=== PATIENT | male | born 1965 | race Caucasian/White ===

== ENCOUNTER 2019-01-30 18:46 | Observation (INO) ==
[2019-01-31] MEDS ORDERED: Naloxone 0.4 MG/ML INJ IVP PRN (02:01)
[2019-01-31] MEDS ORDERED: 0.9 % Sodium Chloride 1,000 ML IVC SCH (02:15)
[2019-01-31] MEDS ORDERED: D5% in Water 1,000 ML IVC PRN (02:19)
[2019-01-31] MEDS ORDERED: Dextrose Gel 15 GM/37.5 ML TUBE PO PRN ×2 (02:19)
[2019-01-31] MEDS ORDERED: *HR* Dextrose 50 % in Water (Syg) 50 ML SYRINGE IVP PRN (02:19)
--- NOTE | 2019-01-31 02:35 | Internal Med History&Physical ---
Date of Encounter: 01/31/19 Time of Encounter: 02:18 Internal Medicine - H&P: HPI Chief complaint: Fever History of present illness: Mr. Ahumada is a 53 year old male with a past medical history of cerebral palsy, asthma, diabetes, hepatitis, hypertension, seizures and thyroid disorder who initially presented to urgent care earlier yesterday afternoon from [facility] due to a reported fever of 104, cough, runny nose reported by his caregiver. Patient was found to be satting at 90-91% on room air. He was tachycardic in the 130s with a blood pressure of 94/62. Flu a was positive. Patient was transferred to [place] for further evaluation. Of note, Patient was recently admitted to [facility] and treated for bilateral pneumonia. At [place] patient received 3 L of fluids and was started on levofloxacin and Tamiflu. Blood cultures were also obtained. Labs obtained at [place] were notable for a leukocyte count of 17.2 and initial lactic acid of 3.9. Repeat lactate 2 hours later was 2.9. Chest x-ray obtained at [place] showed stable retrocardiac left lower lobe airspace disease. On my assessment patient was lying in bed in no acute respiratory distress. Patient is a poor historian given his cerebral palsy and is unable to provide any history but is able to follow commands. Lungs were rhonchorous bilaterally. We treat for influenza and possible HCAP. Past Med Surg Social Fam HX - Past Medical History Medical history: asthma, diabetes, hepatitis, osteoporosis Additional medical history: dysphagia. TBI Psychiatric history: other - Past Surgical History Surgical History: tracheostomy Additional surgical history: SURGERIES ARE UNKNOWN. TRACHE - Social History Smoking Status: Never smoker Smokeless Tobacco Status: No Alcohol use: none Drug use: none Internal Medicine - H&P: Meds Albuterol Sulfate 2.5 mg IH TID 05/28/15 [History] Alendronate Sodium 70 mg PO QWEEK PRN 05/28/15 [History] Calcium Carbonate [Calcium] 500 mg PO BID #0 05/28/15 [History] Docusate Sodium [Dulcoease] 100 mg PO DAILY 05/28/15 [History] Gabapentin [Neurontin] 300 mg PO TID 05/28/15 [History] Levothyroxine Sodium [Tirosint] 50 mcg PO DAILY 05/28/15 [History] Multivitamin [Multi-Delyn] 5 ml PO DAILY 05/28/15 [History] Oxybutynin Chloride [Oxybutynin Chloride ER] 5 mg PO DAILY 05/28/15 [History] Phenytoin Sodium Extended [Dilantin] 100 mg PO QID 05/28/15 [History] dimenhyDRINATE [Dimenhydrinate] 50 mg IJ DAILY PRN 05/28/15 [History] Albuterol Sulfate [Ventolin Hfa] 90 mcg PO Q4H PRN 12/07/15 [History] Magnesium Hydroxide [Milk of Magnesia] 30 ml PO QID 12/07/15 [History] Polyethylene Glycol 3350 [MiraLAX] 17 gm PO DAILY 12/07/15 [History] Quetiapine Fumarate [Seroquel] 200 mg PO HS 12/07/15 [History] metFORMIN [Glucophage] 500 mg PO BID 12/07/15 [History] Alendronate Sodium [Fosamax] 70 mg PO QWEEK 01/09/19 [History] Lovastatin 10 mg PO DAILY 01/09/19 [History] Ascorbic Acid [C-500] 500 mg PO DAILY #30 tablet 01/11/19 [Rx] Ferrous Sulfate 325 mg PO DAILY #30 tablet 01/11/19 [Rx] Lactobacillus [Culturelle] 1 each PO BID #10 cap.sprink 01/11/19 [Rx] Allergy/AdvReac Type Severity Reaction Status Date / Time No Known Allergies Allergy Verified 01/30/19 11:04 All Systems PM: A 10-system review of systems was performed and is negative for pertinent findings except as documented above in the HPI. - Constitutional Constitutional: no chills, no fever(s), no night sweats - EENT Eyes: no change in vision, no discharge, no pain, no photophobia Ears: no ear discharge, no ear pain, no tinnitus Nose, mouth and throat: no dysphagia, no nasal discharge, no neck pain, no sore throat - Cardiovascular Cardiovascular ROS IM: no chest pain, no diaphoresis, no dyspnea, no lightheadedness, no palpitations, no syncope - Respiratory Respiratory: no cough, no dyspnea, no wheezing, no excessive phlegm production - Gastrointestinal Gastrointestinal: no abdominal pain, no diarrhea, no hematemesis, no hematochezia, no melena, no nausea, no vomiting - Musculoskeletal Musculoskeletal ROS IM: no numbness, no tingling - Integumentary Integumentary IM: no rash, no unusual bruising - Neurological Neurological ROS: no confusion, no convulsions, no focal weakness, no numbness, no tingling, no tremor(s) - Hematologic/Lymphatic Hematologic/Lymphatic: no easy bruising - Constitutional Vitals: Temp Pulse Resp BP Pulse Ox 98.0 F 116 18 120/72 97 01/30/19 21:52 01/30/19 21:52 01/30/19 21:52 01/30/19 21:52 01/30/19 21:52 Exam: General: Alert and oriented Skin:Normal color, no rash, no lesions. HEENT:EOM, pupils equal, round and reactive. Cardiovascular:Normal S1 & S2, no rubs, murmurs or gallops. No JVD. Pulse regular. Lungs: Lung sounds rhonchorous bilaterally Abdomen:Soft, non-tender, no rigidity. Extremities:No deformity, no edema or tenderness, no joint swelling or clubbing. Neurological:Normal cognition and motor skills. Pulses:Carotid and radial pulses normal +2. Rest of the physical exam is non contributory Internal Med - H&P Results - Labs CBC & Chem 7: 02/01/19 05:21 01/31/19 04:46 - Assessment and Plan (1) Influenza A Current Visit: No Status: Acute Assessment and plan: Patient reportedly presented with fever 104, runny nose and cough within the last 24 hours. Tested positive for influenza A at urgent care. Received one- time dose of Tamiflu at [place]. -Continue Tamiflu (2) Severe sepsis Current Visit: Yes Status: Acute Assessment and plan: Patient presents with reported fever of 104. Found to be tachycardic with a significant leukocytosis of 17.2 and elevated lactic acid of 3.9. Patient received 3 L of fluids at [facility] prior to transfer. Repeat lactic acid 2.9 patient remains slightly tachycardic in the 1 teens. Her cultures pending -Continue fluid support -Continue with treatment for influenza A with Tamiflu and broad-spectrum antibiotics -Follow-up blood cultures; Legionella/strep urine antigen (3) Left lower lobe pneumonia Current Visit: No Status: Acute Assessment and plan: Patient presenting with fever and cough. Recently admitted for bilateral airspace disease. Lung sounds rhonchorous bilaterally. Repeat chest x-ray shows stable left lower lobe infiltrate; leukocyte count of 17.2. Concern for healthcare associated pneumonia. -[place] and Harleen -Follow-up blood cultures; Legionella/strep urine antigen Qualifiers: Pneumonia type: due to unspecified organism Qualified Code(s): J18.1 - Lobar pneumonia, unspecified organism (4) DM type 2 (diabetes mellitus, type 2) Current Visit: No Status: Chronic Assessment and plan: Diabetic diet. Sliding scale insulin. Blood glucose checks. Qualifiers: Diabetes mellitus intermediate project manager insulin use: without intermediate project manager use Diabetes mellitus complication status: without complication Qualified Code(s): E11.9 - Type 2 diabetes mellitus without complications (5) Hypothyroidism Current Visit: No Status: Chronic Assessment and plan: Resume levothyroxine Qualifiers: Hypothyroidism type: unspecified Qualified Code(s): E03.9 - Hypothyroidism, unspecified (6) Seizure Current Visit: No Status: Chronic (7) DVT prophylaxis Current Visit: Yes Status: Acute Assessment and plan: Subcutaneous heparin - Time Spent With Patient Total time spent is greater than 50% in coordination of care (as documented) at patient's floor/unit and/or counseling patient:
[2019-01-31] MEDS: Insulin LISPRO 300 UNITS/3 ML VIAL SQ SCH ×4 (03:47→16:33)
[2019-01-31] MEDS: 0.9 % Sodium Chloride 1,000 ML IVC SCH ×3 (03:56→22:35)
[2019-01-31 05:05] LABS: Basophils % 0.2 %; Eosinophils % 0.1 %; Hemoglobin 11.7 g/dL (12.9-16.9); Immature Granulocytes % 0.2 % (0-4); Lymphocytes # 0.9 K/mcL (0.6-4.6); Lymphocytes % 9.8 %; Mean Corpuscular HGB Conc 31.6 g/dL (31.6-35.5); Mean Corpuscular Hemoglobin 27.1 pg (28.0-33.3); Mean Corpuscular Volume 85.8 fL (83.0-100.0); Mean Platelet Volume 9.3 fL (9.4-12.4); Monocytes # 1.4 K/mcL (0.0-1.3); Monocytes % 16.2 %; Neutrophils # 6.3 K/mcL (1.6-8.9); Platelet Count 224 K/mcL (140-400); Red Blood Count 4.31 M/mcL (4.19-5.50); Red Cell Distribution Width 15.9 % (11.5-14.5); Segmented Neutrophils % 73.5 %
[2019-01-31] MEDS: *HR* Heparin 5,000 UNIT/ML VIAL SQ SCH ×3 (05:23→20:24)
[2019-01-31 05:25] LABS: Alanine Aminotransferase 44 Units/L (7-52); Albumin 3.3 g/dL (3.5-5.7); Alkaline Phosphatase 66 Units/L (34-104); Aspartate Amino Transferase 48 Units/L (13-39); BUN/Creatinine Ratio 34 (6-26); Bilirubin,Total 0.3 mg/dL (0.3-1.0); Blood Urea Nitrogen 17 mg/dL (6-20); Calcium 8.6 mg/dL (8.6-10.3); Carbon Dioxide 23 mEq/L (23-29); Chloride 107 mEq/L (98-107); Globulin 3.4 g/dL (2.4-3.5); Glucose 130 mg/dL (70-105); Osmolality,Calculated 287 (280-300); Potassium 3.7 mEq/L (3.5-5.1); Sodium 137 mEq/L (136-145); Total Protein 6.7 g/dL (6.4-8.9); eGFR For Non-African Americans > 60 (> 60)
[2019-01-31] MEDS: Piperacillin/Tazobactam 3.375 GM in 0.9 % Sodium Chloride Mini Bag 100 ML IVPB SCH ×2 (07:45→16:32)
--- NOTE | 2019-01-31 22:03 | Internal Med Progress Note ---
Hospitalist Progress Note - Encounter Date of Encounter: 01/31/19 Time of Encounter: 19:00 - Subjective Interval History: SUBJECTIVE: The patient is not showing any signs of distress. He knows his first name and last name. He knows, that he is in the hospital. Denies chest pain. Denies difficulty breathing. He is on room air oxygen. I could not hear him coughing or wheezing. OBJECTIVE: Skin: Free of rash and discoloration. ENMT: Oral/pharyngeal mucosa is normal in appearance. Eyes: Sclera is white. There is no discharge from eyes. Respiratory: Normal breath sounds; no crackles or wheezes. CV: Heart is regular; no gallop or murmur. GI: Abdomen is soft and not tender. There is no palpable mass or visceromegaly. Neuro: He has a different degree of spasticity in all his 4 extremities. He has some involuntary movements. ADDITIONAL DATA: Chest x-ray from yesterday showed retrocardiac left lower lobe air space disease, possibly related to atelectasis. Hemoglobin is 11.7 with WBC of 8.6 thousand and platelet count of 224,000. Electrolytes are normal. Creatinine 0.50. Random glucose is 130. Lactic acid is 1.1; was increased before. Liver function tests are normal. ASSESSMENT AND PLAN: Influenza a. Tested positive in an urgent care. With possible sepsis. I doubt, he has pneumonia. I will repeat his chest x-ray and CBC tomorrow morning. He started on Tamiflu. He is on IV vancomycin and IV Zosyn. Blood cultures are pending. Cerebral palsy/seizure disorder. To continue gabapentin. Type 2 diabetes mellitus. He was on metformin before this admission. Currently, I will keep him on when necessary Humalog. - Exam Vitals: Temp Pulse Resp BP Pulse Ox 98.9 F 88 25 124/77 94 01/31/19 19:28 01/31/19 19:28 01/31/19 19:28 01/31/19 19:28 01/31/19 19:28 Exam: xx - Assessment and Plan (1) DM type 2 (diabetes mellitus, type 2) Current Visit: No Status: Chronic (2) Seizure Current Visit: No Status: Chronic (3) Hypothyroidism Current Visit: No Status: Chronic (4) Left lower lobe pneumonia Current Visit: No Status: Acute (5) Influenza A Current Visit: No Status: Acute (6) Severe sepsis Current Visit: Yes Status: Acute (7) DVT prophylaxis Current Visit: Yes Status: Acute - Time Spent with Patient Total time spent is greater than 50% in coordination of care (as documented) at patient's floor/unit and/or counseling patient: Internal Medicine: Result - Labs CBC & Chem 7: 01/31/19 04:46 01/31/19 04:46 Labs: Short CBC 01/31/19 Range/Units 04:46 WBC 8.6 (4.3-11.1) K/mcL Hgb 11.7 L D (12.9-16.9) g/dL Hct 37.0 L (37.5-50.1) % Plt Count 224 (140-400) K/mcL Neutrophils # 6.3 (1.6-8.9) K/mcL BMP 01/31/19 04:46 Sodium 137 Potassium 3.7 Chloride 107 Carbon Dioxide 23 BUN 17 Creatinine 0.50 L Glucose 130 H Calcium 8.6 Liver Function 01/31/19 Range/Units 04:46 Total Bilirubin 0.3 (0.3-1.0) mg/dL AST 48 H (13-39) Units/L ALT 44 (7-52) Units/L Alkaline Phosphatase 66 (34-104) Units/L Albumin 3.3 L (3.5-5.7) g/dL Consult Discharge Plan - Plan Referrals: Jaqui Traylor MD [Primary Care Provider] - 02/05/19 11:00 am (1) DM type 2 (diabetes mellitus, type 2) Qualifiers: Diabetes mellitus superintendent marine oil terminal insulin use: without superintendent marine oil terminal use Diabetes mellitus complication status: without complication Qualified Code(s): E11.9 - Type 2 diabetes mellitus without complications (3) Hypothyroidism Qualifiers: Hypothyroidism type: unspecified Qualified Code(s): E03.9 - Hypothyroidism, unspecified (4) Left lower lobe pneumonia Qualifiers: Pneumonia type: due to unspecified organism Qualified Code(s): J18.1 - Lobar pneumonia, unspecified organism
[2019-01-31] MEDS ORDERED: GuaiFENesin Liq 200 MG/10 ML UDC PO SCH (22:45)
[2019-02-01] MEDS ORDERED: GuaiFENesin Liq 200 MG/10 ML UDC PO SCH
[2019-02-01] MEDS: Piperacillin/Tazobactam 3.375 GM in 0.9 % Sodium Chloride Mini Bag 100 ML IVPB SCH ×3 (00:47→18:20)
[2019-02-01] MEDS: GuaiFENesin Liq 200 MG/10 ML UDC PO SCH ×4 (00:47→18:21)
[2019-02-01] MEDS: *HR* Heparin 5,000 UNIT/ML VIAL SQ SCH ×3 (05:16→21:10)
[2019-02-01 06:24] LABS: Basophils % 0.2 %; Eosinophils % 0.3 %; Immature Granulocytes % 0.2 % (0-4); Lymphocytes # 1.3 K/mcL (0.6-4.6); Mean Corpuscular HGB Conc 32.4 g/dL (31.6-35.5); Mean Corpuscular Hemoglobin 27.3 pg (28.0-33.3); Mean Corpuscular Volume 84.4 fL (83.0-100.0); Mean Platelet Volume 9.9 fL (9.4-12.4); Monocytes # 1.2 K/mcL (0.0-1.3); Monocytes % 13.4 %; Neutrophils # 6.4 K/mcL (1.6-8.9); Platelet Count 239 K/mcL (140-400); Red Blood Count 4.03 M/mcL (4.19-5.50); Red Cell Distribution Width 15.3 % (11.5-14.5); Segmented Neutrophils % 71.9 %
[2019-02-01] MEDS: Gabapentin 300 MG CAPSULE PO SCH ×3 (10:14→21:10)
[2019-02-01] MEDS: Insulin LISPRO 300 UNITS/3 ML VIAL SQ SCH ×3 (10:17→18:27)
[2019-02-01] MEDS: 0.9 % Sodium Chloride 1,000 ML IVC SCH ×2 (14:49→18:31)
--- NOTE | 2019-02-01 22:13 | Internal Med Progress Note ---
Hospitalist Progress Note - Encounter Date of Encounter: 02/01/19 Time of Encounter: 19:00 - Subjective Interval History: SUBJECTIVE: The patient feels better. I found him in his bed not showing any distress. I did not observe any involuntary movements during the visit. Denies chest pain. He does have mild cough but not wheezing. He seems to have good appetite. He has normal bowel movements and urination. OBJECTIVE: Skin: Free of rash and discoloration. ENMT: Oral/pharyngeal mucosa is normal in appearance. Eyes: Sclera is white. There is no discharge from eyes. Respiratory: Normal breath sounds; no crackles or wheezes. CV: Heart is regular; no gallop or murmur. GI: Abdomen is soft and not tender. There is no palpable mass or visceromegaly. Neuro: There is no focal deficits. ADDITIONAL DATA: Chest x-ray from today does not show any significant findings. CBC shows hemoglobin of 11.0 with normal WBC/platelet count. ASSESSMENT AND PLAN: Influenza A. His pneumonia is basically ruled out. He does not have any sepsis today. I will continue Tamiflu. I will discontinue IV vancomycin/IV Zosyn. Seizure disorder. He has underlying cerebral palsy. To continue gabapentin. Type 2 diabetes mellitus. Fingerstick for glucose from today is 136 and 243. To continue when necessary Humalog. Hypothyroidism. Clinically under control. To continue Synthroid. DISPOSITION: I anticipate his discharge in 1-2 days. - Exam Vitals: Temp Pulse Resp BP Pulse Ox 98.3 F 88 19 133/86 91 02/01/19 19:52 02/01/19 19:52 02/01/19 19:52 02/01/19 19:52 02/01/19 19:52 Exam: xx - Assessment and Plan (1) Influenza A Current Visit: Yes Status: Acute (2) Left lower lobe pneumonia Current Visit: Yes Status: Ruled-out (3) Severe sepsis Current Visit: Yes Status: Acute (4) Seizure Current Visit: Yes Status: Chronic (5) DM type 2 (diabetes mellitus, type 2) Current Visit: No Status: Chronic (6) Hypothyroidism Current Visit: No Status: Chronic - Time Spent with Patient Total time spent is greater than 50% in coordination of care (as documented) at patient's floor/unit and/or counseling patient: Internal Medicine: Result - Labs CBC & Chem 7: 02/01/19 05:21 01/31/19 04:46 Labs: Short CBC 02/01/19 Range/Units 05:21 WBC 8.9 (4.3-11.1) K/mcL Hgb 11.0 L (12.9-16.9) g/dL Hct 34.0 L (37.5-50.1) % Plt Count 239 (140-400) K/mcL Neutrophils # 6.4 (1.6-8.9) K/mcL - Impressions Impressions Chest X-Ray 02/01/19 07:00 IMPRESSION: Normal chest x-ray D/ / Suraj Forbes MD / Suraj Forbes MD Interpreting Provider: Suraj Forbes MD Consult Discharge Plan - Plan Referrals: Jaqui Traylor MD [Primary Care Provider] - 02/05/19 11:00 am (2) Left lower lobe pneumonia Qualifiers: Pneumonia type: due to unspecified organism Qualified Code(s): J18.1 - Lobar pneumonia, unspecified organism (5) DM type 2 (diabetes mellitus, type 2) Qualifiers: Diabetes mellitus alf insulin use: without exterminator termite use Diabetes m ellitus complication status: without complication Qualified Code(s): E11.9 - Type 2 diabetes mellitus without complications (6) Hypothyroidism Qualifiers: Hypothyroidism type: unspecified Qualified Code(s): E03.9 - Hypothyroidism, unspecified
[2019-02-02] MEDS: GuaiFENesin Liq 200 MG/10 ML UDC PO SCH ×4 (00:12→18:31)
[2019-02-02] MEDS: Piperacillin/Tazobactam 3.375 GM in 0.9 % Sodium Chloride Mini Bag 100 ML IVPB SCH (00:12)
[2019-02-02] MEDS: *HR* Heparin 5,000 UNIT/ML VIAL SQ SCH ×3 (06:41→21:44)
[2019-02-02] MEDS: 0.9 % Sodium Chloride 1,000 ML IVC SCH (06:41)
[2019-02-02 07:01] LABS: Hematocrit 33.3 % (37.5-50.1); Hemoglobin 10.9 g/dL (12.9-16.9); Mean Corpuscular HGB Conc 32.7 g/dL (31.6-35.5); Mean Corpuscular Hemoglobin 27.2 pg (28.0-33.3); Mean Platelet Volume 9.2 fL (9.4-12.4); Platelet Count 235 K/mcL (140-400); Red Blood Count 4.01 M/mcL (4.19-5.50); Red Cell Distribution Width 15.4 % (11.5-14.5)
[2019-02-02 07:20] LABS: BUN/Creatinine Ratio 8 (6-26); Blood Urea Nitrogen 4 mg/dL (6-20); Calcium 8.3 mg/dL (8.6-10.3); Carbon Dioxide 27 mEq/L (23-29); Chloride 107 mEq/L (98-107); Glucose 156 mg/dL (70-105); Osmolality,Calculated 290 (280-300); Potassium 3.2 mEq/L (3.5-5.1); Sodium 140 mEq/L (136-145); eGFR For Non-African Americans > 60 (> 60)
[2019-02-02] MEDS: Gabapentin 300 MG CAPSULE PO SCH ×3 (10:01→21:44)
[2019-02-02] MEDS: Insulin LISPRO 300 UNITS/3 ML VIAL SQ SCH ×3 (10:01→18:30)
--- NOTE | 2019-02-02 20:54 | Internal Med Progress Note ---
Hospitalist Progress Note - Encounter Date of Encounter: 02/02/19 Time of Encounter: 19:00 - Subjective Interval History: SUBJECTIVE: The patient feels good. He is not voicing any particular problems. He does have mild cough but not wheezing. Denies chest pain and difficulty breathing. Denies abdominal pain, nausea and vomiting. He has normal urination. I found him sitting next to his bed. He was not showing any signs of distress. OBJECTIVE: Skin: Free of rash and discoloration. ENMT: Oral/pharyngeal mucosa is normal in appearance. Eyes: Sclera is white. There is no discharge from eyes. Respiratory: Normal breath sounds; no crackles or wheezes. CV: Heart is regular; no gallop or murmur. GI: Abdomen is soft and not tender. There is no palpable mass or visceromegaly. Neuro: There is no focal deficits. He does have some spasticity in his extremities. I have not seen any involuntary movements today. ADDITIONAL DATA: Chest x-ray from 02/01 did not show any significant findings. CBC from yesterday showed hemoglobin of 11.0 with normal WBC/platelet count. ASSESSMENT AND PLAN: Influenza A. His pneumonia is basically ruled out. His sepsis was present on day 1; disappeared later. To continue Tamiflu. For total of 5 days. Seizure disorder. He has underlying cerebral palsy. To continue gabapentin. Type 2 diabetes mellitus. Fingerstick for glucose from today is 186, 189 and 137. To continue when necessary Humalog. Hypothyroidism. Clinically under control. To continue Synthroid. DISPOSITION: I talked to the patients caregiver from his [facility] living today. They will come tomorrow at lunchtime to get him discharged. - Exam Vitals: Temp Pulse Resp BP Pulse Ox 98.7 F 73 18 143/88 95 02/02/19 18:59 02/02/19 18:59 02/02/19 18:59 02/02/19 18:59 02/02/19 18:59 Exam: xx - Assessment and Plan (1) Influenza A Current Visit: Yes Status: Acute (2) Left lower lobe pneumonia Current Visit: Yes Status: Ruled-out (3) Severe sepsis Current Visit: Yes Status: Resolved (4) Seizure Current Visit: Yes Status: Chronic (5) DM type 2 (diabetes mellitus, type 2) Current Visit: No Status: Chronic (6) Hypothyroidism Current Visit: No Status: Chronic - Time Spent with Patient Total time spent is greater than 50% in coordination of care (as documented) at patient's floor/unit and/or counseling patient: 25 - 35 minutes Plan of Care Discussed with: patient Internal Medicine: Result - Labs CBC & Chem 7: 02/02/19 06:35 02/02/19 06:35 Labs: Short CBC 02/02/19 Range/Units 06:35 WBC 6.3 (4.3-11.1) K/mcL Hgb 10.9 L (12.9-16.9) g/dL Hct 33.3 L (37.5-50.1) % Plt Count 235 (140-400) K/mcL BMP 02/02/19 06:35 Sodium 140 Potassium 3.2 L Chloride 107 Carbon Dioxide 27 BUN 4 L Creatinine 0.50 L Glucose 156 H Calcium 8.3 L Consult Discharge Plan - Plan Referrals: Jaqui Traylor MD [Primary Care Provider] - 02/05/19 11:00 am (2) Left lower lobe pneumonia Qualifiers: Pneumonia type: due to unspecified organism Qualified Code(s): J18.1 - Lobar pneumonia, unspecified organism (5) DM type 2 (diabetes mellitus, type 2) Qualifiers: Diabetes mellitus salvage determiner insulin use: without salvage determiner use Diabetes mellitus complication status: without complication Qualified Code(s): E11.9 - Type 2 diabetes mellitus without complications (6) Hypothyroidism Qualifiers: Hypothyroidism type: unspecified Qualified Code(s): E03.9 - Hypothyroidism, unspecified
[2019-02-02] MEDS ORDERED: Aminoglycoside Consult 1 EACH MC ONE (20:55)
[2019-02-03] MEDS: GuaiFENesin Liq 200 MG/10 ML UDC PO SCH ×2 (01:13→05:19)
[2019-02-03] MEDS: *HR* Heparin 5,000 UNIT/ML VIAL SQ SCH (05:19)
[2019-02-03 05:50] LABS: Hematocrit 33.7 % (37.5-50.1); Mean Corpuscular HGB Conc 32.6 g/dL (31.6-35.5); Mean Corpuscular Hemoglobin 26.7 pg (28.0-33.3); Mean Corpuscular Volume 81.8 fL (83.0-100.0); Mean Platelet Volume 9.3 fL (9.4-12.4); Platelet Count 234 K/mcL (140-400); Red Blood Count 4.12 M/mcL (4.19-5.50); Red Cell Distribution Width 15.4 % (11.5-14.5)
[2019-02-03 06:08] LABS: BUN/Creatinine Ratio 10 (6-26); Blood Urea Nitrogen 5 mg/dL (6-20); Calcium 8.9 mg/dL (8.6-10.3); Carbon Dioxide 30 mEq/L (23-29); Chloride 105 mEq/L (98-107); Glucose 161 mg/dL (70-105); Osmolality,Calculated 293 (280-300); Potassium 3.3 mEq/L (3.5-5.1); Sodium 141 mEq/L (136-145); eGFR For Non-African Americans > 60 (> 60)
[2019-02-03 07:20] VITALS: BP 130/75
[2019-02-03] MEDS: Gabapentin 300 MG CAPSULE PO SCH (09:45)
--- NOTE | 2019-02-03 09:45 | Discharge Summary ---
Orders not resulted at time of discharge: Pending orders 01/31/19 02:24 Legionella Antigen [RM] Stat S. Pneumoniae Antigen [RM] Stat 02/04/19 04:00 BMP [Basic Metabolic Panel] 4XPD Complete Blood Count w/o Diff [HEME] 4XPD Date of Encounter: 02/03/19 Time of Encounter: 09:32 - Discharge Diagnosis (1) Influenza A Priority: Primary Status: Acute (2) Left lower lobe pneumonia Priority: Primary Status: Ruled-out Qualifiers: Pneumonia type: due to unspecified organism Qualified Code(s): J18.1 - Lobar pneumonia, unspecified organism (3) Severe sepsis Priority: Primary Status: Resolved (4) Seizure Priority: Secondary Status: Chronic (5) DM type 2 (diabetes mellitus, type 2) Priority: Secondary Status: Chronic Qualifiers: Diabetes mellitus ad terminal makeup operator insulin use: without ad terminal makeup operator use Diabetes mellitus complication status: without complication Qualified Code(s): E11.9 - Type 2 diabetes mellitus without complications (6) Hypothyroidism Priority: Secondary Status: Chronic Qualifiers: Hypothyroidism type: unspecified Qualified Code(s): E03.9 - Hypothyroidism, unspecified Hospital course: HOSPITAL COURSE: The patient is a 53-year-old male with high fever/suspected sepsis. We found him positive for influenza A testing. Initial diagnosis of pneumonia was ruled out shortly after the admission. He was treated with Tamiflu. He received IV fluids. He was on IV antibiotics for the first 24 hours. She believes at a custodial. He has underlying cerebral palsy/seizure disorder. I sent him there in good condition. CONDITION AT DISCHARGE: He feels good. He has no problems with diet. He does transfers with assistance. Denies chest pain and difficulty breathing. His fever was only in the first 24 hours at this admission. Skin: Free of rash and discoloration. Respiratory: Normal breath sounds with no crackles and wheezes bilaterally. CV: Heart is regular with no gallop or murmur. GI: Abdomen is flat and soft with no palpable mass or visceromegaly. Neuro exam: There is no focal deficits. Normal speech, swallowing and gait. SEE DISCHARGE ORDERS/MEDICATIONS He will complete treatment with Tamiflu. Discharge discussed with: patient (and family...) - Time Spent with Patient Total time spent providing and/or coordinating discharge services: Time spent: Greater than 30 minutes (35 minutes...) - Discharge Medications Prescriptions: New Oseltamivir [Tamiflu] 75 mg PO BID 3 Days #6 capsule Continue Magnesium Hydroxide [Milk of Magnesia] 30 ml PO PRN PRN PRN Reason: NO BOWEL MOVEMENT FOR 3 DAYS Quetiapine Fumarate [Seroquel] 100 mg PO QAM Polyethylene Glycol 3350 [MiraLAX] 17 gm PO DAILY Albuterol Sulfate [Ventolin Hfa] 2 puff IH Q4-6H PRN PRN Reason: COUGH/CONGESTION/ SOB Acetaminophen [Tylenol] 650 mg PO Q4H PRN PRN Reason: TEMP GREATER THAN 101/ HEADACH Albuterol Neb [Proventil Neb] 2.5 mg IH Q4H PRN PRN Reason: COUGH/WHEEZING/DYSPNEA Benzonatate [Tessalon] 100 mg PO TID PRN PRN Reason: Cough Calcium Carbonate/Vitamin D3 [Oyster Shell Calcium-Vit D Tab] 1 tab PO BID Carbamide Peroxide [Ear Wax Drops] 3 drop BOTH EARS HS Desitin (Zinc Oxide) [Desitin] 1 appl TP BID PRN PRN Reason: REDNESS/IRRITATION dimenhyDRINATE [Dramamine] 50 mg PO PRN PRN PRN Reason: Motion Sickness Docusate Sodium [Doc-Q-Lace] 200 mg PO QPM Emollient Combination No.108 [Lubriskin] 1 appl TP AD PRN PRN Reason: MOISTURIZE SKIN Gabapentin [Neurontin] 300 mg PO TID Guaifenesin [Mucinex] 600 mg PO Q12H PRN PRN Reason: Cough Ibuprofen [Ibu] 800 mg PO TID PRN PRN Reason: SWELLING OF LEFT FOOT Metformin HCl [Glucophage] 1,000 mg PO BID Multivit,Th Iron,Other Min [Therems-M] 1 tab PO DAILY Non-Formulary Medication 30 ml PO Q4H PRN PRN Reason: UPSET STOMACH/ HEARTBURN Oxybutynin Chloride [Ditropan Xl] 5 mg PO DAILY Phenytoin ER [Dilantin ER] 100 mg PO QID Quetiapine Fumarate [Seroquel] 200 mg PO QPM Saline Nasal [place] [[place]ber Nas[place]] 3 spray NS TID PRN PRN Reason: NASAL SCABS Multivitamin [Multi-Delyn] 5 ml PO DAILY Levothyroxine Sodium [Tirosint] 50 mcg PO DAILY Alendronate Sodium [Fosamax] 70 mg PO QWEEK Lovastatin 10 mg PO DAILY Ascorbic Acid [C-500] 500 mg PO DAILY #30 tablet Ferrous Sulfate 325 mg PO DAILY #30 tablet Lactobacillus [Culturelle] 1 each PO BID #10 cap.sprink Discontinued Calcium Carbonate [Calcium] 500 mg PO BID #0 No Action levoFLOXacin [Levaquin] 500 mg PO DAILY #10 tablet Home Medications: Levothyroxine Sodium [Tirosint] 50 mcg PO DAILY 05/28/15 [History] Multivitamin [Multi-Delyn] 5 ml PO DAILY 05/28/15 [History] Albuterol Sulfate [Ventolin Hfa] 2 puff IH Q4-6H PRN 12/07/15 [History] Magnesium Hydroxide [Milk of Magnesia] 30 ml PO PRN PRN 12/07/15 [History] Polyethylene Glycol 3350 [MiraLAX] 17 gm PO DAILY 12/07/15 [History] Quetiapine Fumarate [Seroquel] 100 mg PO QAM 12/07/15 [History] Alendronate Sodium [Fosamax] 70 mg PO QWEEK 01/09/19 [History] Lovastatin 10 mg PO DAILY 01/09/19 [History] Ascorbic Acid [C-500] 500 mg PO DAILY #30 tablet 01/11/19 [Rx] Ferrous Sulfate 325 mg PO DAILY #30 tablet 01/11/19 [Rx] Lactobacillus [Culturelle] 1 each PO BID #10 cap.sprink 01/11/19 [Rx] Acetaminophen [Tylenol] 650 mg PO Q4H PRN 02/01/19 [History] Albuterol Neb [Proventil Neb] 2.5 mg IH Q4H PRN 02/01/19 [History] Benzonatate [Tessalon] 100 mg PO TID PRN 02/01/19 [History] Calcium Carbonate/Vitamin D3 [Oyster Shell Calcium-Vit D Tab] 1 tab PO BID 02/01/19 [History] Carbamide Peroxide [Ear Wax Drops] 3 drop BOTH EARS HS 02/01/19 [History] Desitin (Zinc Oxide) [Desitin] 1 appl TP BID PRN 02/01/19 [History] Docusate Sodium [Doc-Q-Lace] 200 mg PO QPM 02/01/19 [History] Emollient Combination No.108 [Lubriskin] 1 appl TP AD PRN 02/01/19 [History] Gabapentin [Neurontin] 300 mg PO TID 02/01/19 [History] Guaifenesin [Mucinex] 600 mg PO Q12H PRN 02/01/19 [History] Ibuprofen [Ibu] 800 mg PO TID PRN 02/01/19 [History] Metformin HCl [Glucophage] 1,000 mg PO BID 02/01/19 [History] Multivit,Th Iron,Other Min [Therems-M] 1 tab PO DAILY 02/01/19 [History] Non-Formulary Medication 30 ml PO Q4H PRN 02/01/19 [History] Oxybutynin Chloride [Ditropan Xl] 5 mg PO DAILY 02/01/19 [History] Phenytoin ER [Dilantin ER] 100 mg PO QID 02/01/19 [History] Quetiapine Fumarate [Seroquel] 200 mg PO QPM 02/01/19 [History] Saline Nasal [place] [[place] Nasal [place]] 3 spray NS TID PRN 02/01/19 [History] dimenhyDRINATE [Dramamine] 50 mg PO PRN PRN 02/01/19 [History] Oseltamivir [Tamiflu] 75 mg PO BID 3 Days #6 capsule 02/03/19 [Rx] levoFLOXacin [Levaquin] 500 mg PO DAILY #10 tablet 02/04/19 [Rx] Allergies/Adverse Reactions: Allergy/AdvReac Type Severity Reaction Status Date / Time No Known Allergies Allergy Verified 02/04/19 17:47 Date of admission: 01/30/19 20:54 Primary care physician: Jaqui Traylor Consults: 01/31/19 09:26 Consult to Nurse Navigator [CONS] Routine Comment: pn Discharging clinician: Jackson Rivas Anticipated date of discharge: 02/03/19 - Constitutional Vitals: Temp Pulse Resp BP Pulse Ox 98.0 F 69 18 130/75 92 02/03/19 07:19 02/03/19 07:19 02/03/19 07:19 02/03/19 07:19 02/03/19 07:19 General appearance: Present: A&O X 3, no acute distress, answers questions appropriately Exam: xx - Patient Status Disposition: Home, Self-Care Condition: Good Functional capacity at discharge: wheelchair bound (has cerebral palsy...) Overall status at discharge: patient is back to baseline - Discharge Instructions Follow Up With: Jaqui Traylor MD [Primary Care Provider] - 02/05/19 11:00 am Forms: Work/School Release - Diet and Activity Activity: other (wheelchair bound...) Diet: diabetic diet
[2019-02-03] MEDS: Insulin LISPRO 300 UNITS/3 ML VIAL SQ SCH (09:49)
== END 2019-02-03 11:42 | disposition home or self-care (01) ==
LOC: 2ANU → SUATTDRO 20:54
PROVIDERS: ADMIT Internal Medicine; ATTEND Internal Medicine

== ENCOUNTER 2019-11-02 23:07 | Inpatient (IN) ==
[2019-11-03] MEDS ORDERED: Naloxone 0.4 MG/ML INJ IVP PRN (05:24)
[2019-11-03] MEDS ORDERED: D5% in Water 1,000 ML IVC PRN (05:25)
[2019-11-03] MEDS ORDERED: Dextrose Gel 15 GM/37.5 ML TUBE PO PRN ×2 (05:25)
[2019-11-03] MEDS ORDERED: *HR* Dextrose 50 % in Water (Syg) 50 ML SYRINGE IVP PRN (05:25)
[2019-11-03] MEDS ORDERED: 0.9 % Sodium Chloride 1,000 ML IVC ONE (06:44)
[2019-11-03 07:34] LABS: Hematocrit 37.2 % (37.5-50.1); Hemoglobin 12.5 g/dL (12.9-16.9); Mean Corpuscular HGB Conc 33.6 g/dL (31.6-35.5); Mean Corpuscular Hemoglobin 29.1 pg (28.0-33.3); Mean Corpuscular Volume 86.5 fL (83.0-100.0); Mean Platelet Volume 9.6 fL (9.4-12.4); Platelet Count 271 K/mcL (140-400); Red Cell Distribution Width 15.2 % (11.5-14.5); White Blood Count 14.9 K/mcL (4.3-11.1)
[2019-11-03] MEDS ORDERED: Ipratropium Neb 0.5 MG NEBULIZER IH PRN (07:42)
[2019-11-03 07:51] LABS: BUN/Creatinine Ratio 21 (6-26); Blood Urea Nitrogen 10 mg/dL (6-20); Calcium 8.3 mg/dL (8.6-10.3); Carbon Dioxide 25 mEq/L (23-29); Chloride 105 mEq/L (98-107); Glucose 139 mg/dL (70-105); Osmolality,Calculated 287 (280-300); Potassium 3.9 mEq/L (3.5-5.1); Sodium 138 mEq/L (136-145); eGFR For African Americans > 60 (> 60); eGFR For Non-African Americans > 60 (> 60)
[2019-11-03] MEDS: cefTRIAXone 1,000 MG in 0.9 % Sodium Chloride Mini Bag 100 ML IVPB SCH (08:00)
[2019-11-03] MEDS: Gabapentin 300 MG CAPSULE PO SCH ×3 (08:01→20:33)
[2019-11-03] MEDS: Insulin LISPRO 300 UNITS/3 ML VIAL SQ SCH ×4 (08:02→20:33)
[2019-11-03] MEDS ORDERED: cefTRIAXone 1,000 MG in Water for inj. (sterile) 10 ML IVP SCH (09:00)
[2019-11-03] MEDS: Azithromycin 500 MG in D5% in Water 250 ML IVPB SCH (09:00)
[2019-11-03] MEDS: Levalbuterol Neb 0.63 MG/3 ML IH SCH ×2 (10:54→21:56)
[2019-11-03] MEDS: *HR* Heparin 5,000 UNIT/ML VIAL SQ SCH (18:40)
[2019-11-03] MEDS ORDERED: Azithromycin 500 MG in D5% in Water 250 ML IVPB SCH (22:00)
[2019-11-04 05:41] LABS: Basophils % 0.3 %; Eosinophils # 0.3 K/mcL (0.0-0.6); Eosinophils % 3.3 %; Hematocrit 37.7 % (37.5-50.1); Hemoglobin 12.6 g/dL (12.9-16.9); Immature Granulocytes % 0.3 % (0-4); Lymphocytes # 2.4 K/mcL (0.6-4.6); Lymphocytes % 31.1 %; Mean Corpuscular HGB Conc 33.4 g/dL (31.6-35.5); Mean Corpuscular Hemoglobin 28.7 pg (28.0-33.3); Mean Corpuscular Volume 85.9 fL (83.0-100.0); Mean Platelet Volume 9.1 fL (9.4-12.4); Monocytes # 0.7 K/mcL (0.0-1.3); Monocytes % 9.4 %; Neutrophils # 4.2 K/mcL (1.6-8.9); Platelet Count 273 K/mcL (140-400); Red Blood Count 4.39 M/mcL (4.19-5.50); Segmented Neutrophils % 55.6 %; White Blood Count 7.6 K/mcL (4.3-11.1)
[2019-11-04 05:58] LABS: BUN/Creatinine Ratio 16 (6-26); Blood Urea Nitrogen 9 mg/dL (6-20); Calcium 8.6 mg/dL (8.6-10.3); Carbon Dioxide 26 mEq/L (23-29); Chloride 107 mEq/L (98-107); Glucose 140 mg/dL (70-105); Osmolality,Calculated 289 (280-300); Potassium 3.5 mEq/L (3.5-5.1); Sodium 139 mEq/L (136-145); eGFR For African Americans > 60 (> 60); eGFR For Non-African Americans > 60 (> 60)
[2019-11-04] MEDS: *HR* Heparin 5,000 UNIT/ML VIAL SQ SCH ×2 (06:00→17:40)
[2019-11-04] MEDS: Gabapentin 300 MG CAPSULE PO SCH ×2 (07:59→15:29)
[2019-11-04] MEDS: cefTRIAXone 1,000 MG in 0.9 % Sodium Chloride Mini Bag 100 ML IVPB SCH (08:00)
[2019-11-04] MEDS: Azithromycin 500 MG in D5% in Water 250 ML IVPB SCH (08:00)
[2019-11-04] MEDS: Insulin LISPRO 300 UNITS/3 ML VIAL SQ SCH ×4 (08:01→21:22)
[2019-11-04] MEDS: Levalbuterol Neb 0.63 MG/3 ML IH SCH ×3 (10:39→22:56)
[2019-11-04 10:46] LABS: Adenovirus Not Detected (Not Detect); Bordetella Pertussis Not Detected (Not Detect); Chlamydophila pneumoniae Not Detected (Not Detect); Coronavirus 229E Not Detected (Not Detect); Coronavirus HKU1 Not Detected (Not Detect); Coronavirus NL63 Not Detected (Not Detect); Coronavirus OC43 Not Detected (Not Detect); Human Metapneumovirus Not Detected (Not Detect); Human Rhinovirus/Enterovirus Not Detected (Not Detect); Influenza A Subtype 2009 H1 Not Detected (Not Detect); Influenza B Not Detected (Not Detect); Mycoplasma pneumoniae Not Detected (Not Detect); Parainfluenza Virus 1 Not Detected (Not Detect); Parainfluenza Virus 2 Not Detected (Not Detect); Parainfluenza Virus 3 Not Detected (Not Detect); Parainfluenza Virus 4 Not Detected (Not Detect); Respiratory Syncytial Virus Not Detected (Not Detect)
[2019-11-04] MEDS ORDERED: predniSONE 20 MG TABLET PO SCH (12:05)
[2019-11-04] MEDS ORDERED: E-Z-PAQUE (BARIUM SULF) SUSP 1 BOTTLE PO ONE (14:47)
[2019-11-04] MEDS ORDERED: E-Z-HD (BARIUM SULF) SUSPENSION PO ONE (14:47)
[2019-11-04] MEDS ORDERED: *HR* LORazepam 2 MG/ML VIAL IVP ONE (16:41)
[2019-11-04] MEDS: Piperacillin/Tazobactam 3.375 GM in 0.9 % Sodium Chloride Mini Bag 100 ML IVPB SCH (17:41)
[2019-11-05] MEDS: Piperacillin/Tazobactam 3.375 GM in 0.9 % Sodium Chloride Mini Bag 100 ML IVPB SCH ×3 (00:35→17:12)
[2019-11-05] MEDS: Levalbuterol Neb 0.63 MG/3 ML IH SCH ×4 (04:04→21:40)
[2019-11-05] MEDS: *HR* Heparin 5,000 UNIT/ML VIAL SQ SCH ×2 (05:16→17:13)
[2019-11-05 06:18] LABS: Basophils % 0.2 %; Eosinophils # 0.1 K/mcL (0.0-0.6); Eosinophils % 1.5 %; Hematocrit 39.4 % (37.5-50.1); Hemoglobin 13.2 g/dL (12.9-16.9); Immature Granulocytes % 0.2 % (0-4); Lymphocytes # 2.8 K/mcL (0.6-4.6); Lymphocytes % 30.3 %; Mean Corpuscular HGB Conc 33.5 g/dL (31.6-35.5); Mean Corpuscular Hemoglobin 29.3 pg (28.0-33.3); Mean Corpuscular Volume 87.6 fL (83.0-100.0); Mean Platelet Volume 8.7 fL (9.4-12.4); Monocytes # 0.8 K/mcL (0.0-1.3); Neutrophils # 5.4 K/mcL (1.6-8.9); Platelet Count 307 K/mcL (140-400); Red Cell Distribution Width 14.8 % (11.5-14.5); Segmented Neutrophils % 58.8 %; White Blood Count 9.2 K/mcL (4.3-11.1)
[2019-11-05 06:42] LABS: BUN/Creatinine Ratio 19 (6-26); Blood Urea Nitrogen 12 mg/dL (6-20); Calcium 9.1 mg/dL (8.6-10.3); Carbon Dioxide 26 mEq/L (23-29); Chloride 103 mEq/L (98-107); Glucose 152 mg/dL (70-105); Osmolality,Calculated 291 (280-300); Potassium 3.8 mEq/L (3.5-5.1); Sodium 139 mEq/L (136-145); eGFR For African Americans > 60 (> 60); eGFR For Non-African Americans > 60 (> 60)
[2019-11-05] MEDS: Insulin LISPRO 300 UNITS/3 ML VIAL SQ SCH ×4 (08:28→22:45)
[2019-11-05] MEDS ORDERED: Aspirin Enteric Coated 81 MG Tablet PO SCH (09:00)
[2019-11-05] MEDS ORDERED: Azithromycin 500 MG in 0.9 % Sodium Chloride 250 ML IVPB SCH (09:00)
[2019-11-05] MEDS ORDERED: MethylPREDNISolone 40 MG/ML VIAL IVP SCH (09:00)
[2019-11-05] MEDS ORDERED: Azithromycin 250 MG TABLET PO SCH (09:00)
[2019-11-06] MEDS: Piperacillin/Tazobactam 3.375 GM in 0.9 % Sodium Chloride Mini Bag 100 ML IVPB SCH ×3 (00:33→16:08)
[2019-11-06] MEDS: Levalbuterol Neb 0.63 MG/3 ML IH SCH ×4 (04:01→23:54)
[2019-11-06] MEDS: *HR* Heparin 5,000 UNIT/ML VIAL SQ SCH ×2 (04:34→17:44)
[2019-11-06 04:59] LABS: Basophils % 0.2 %; Eosinophils # 0.2 K/mcL (0.0-0.6); Eosinophils % 1.9 %; Hematocrit 43.8 % (37.5-50.1); Hemoglobin 14.3 g/dL (12.9-16.9); Immature Granulocytes % 0.1 % (0-4); Lymphocytes # 2.5 K/mcL (0.6-4.6); Lymphocytes % 29.7 %; Mean Corpuscular HGB Conc 32.6 g/dL (31.6-35.5); Mean Corpuscular Hemoglobin 28.7 pg (28.0-33.3); Mean Platelet Volume 8.9 fL (9.4-12.4); Monocytes # 0.9 K/mcL (0.0-1.3); Monocytes % 10.6 %; Neutrophils # 4.7 K/mcL (1.6-8.9); Platelet Count 315 K/mcL (140-400); Red Blood Count 4.98 M/mcL (4.19-5.50); Red Cell Distribution Width 14.6 % (11.5-14.5); Segmented Neutrophils % 57.5 %; White Blood Count 8.3 K/mcL (4.3-11.1)
[2019-11-06 05:34] LABS: BUN/Creatinine Ratio 23 (6-26); Blood Urea Nitrogen 15 mg/dL (6-20); Calcium 9.2 mg/dL (8.6-10.3); Carbon Dioxide 25 mEq/L (23-29); Chloride 101 mEq/L (98-107); Glucose 130 mg/dL (70-105); Osmolality,Calculated 285 (280-300); Sodium 136 mEq/L (136-145); eGFR For African Americans > 60 (> 60); eGFR For Non-African Americans > 60 (> 60)
[2019-11-06] MEDS: Insulin LISPRO 300 UNITS/3 ML VIAL SQ SCH ×3 (07:57→16:49)
[2019-11-06] MEDS ORDERED: Levalbuterol Neb 1.25 MG/3 ML ONE (15:59)
[2019-11-07] MEDS: Insulin LISPRO 300 UNITS/3 ML VIAL SQ SCH ×5 (00:15→22:37)
[2019-11-07] MEDS: Piperacillin/Tazobactam 3.375 GM in 0.9 % Sodium Chloride Mini Bag 100 ML IVPB SCH ×3 (00:26→15:10)
[2019-11-07] MEDS: Levalbuterol Neb 0.63 MG/3 ML IH SCH ×4 (04:04→22:57)
[2019-11-07 05:31] LABS: Basophils % 0.2 %; Eosinophils # 0.1 K/mcL (0.0-0.6); Eosinophils % 1.6 %; Hematocrit 43.1 % (37.5-50.1); Hemoglobin 14.2 g/dL (12.9-16.9); Immature Granulocytes % 0.2 % (0-4); Lymphocytes # 2.3 K/mcL (0.6-4.6); Lymphocytes % 28.2 %; Mean Corpuscular HGB Conc 32.9 g/dL (31.6-35.5); Mean Platelet Volume 8.8 fL (9.4-12.4); Monocytes # 0.9 K/mcL (0.0-1.3); Monocytes % 10.7 %; Neutrophils # 4.9 K/mcL (1.6-8.9); Platelet Count 333 K/mcL (140-400); Red Cell Distribution Width 14.4 % (11.5-14.5); Segmented Neutrophils % 59.1 %; White Blood Count 8.2 K/mcL (4.3-11.1)
[2019-11-07 05:48] LABS: BUN/Creatinine Ratio 28 (6-26); Blood Urea Nitrogen 16 mg/dL (6-20); Calcium 8.8 mg/dL (8.6-10.3); Carbon Dioxide 21 mEq/L (23-29); Chloride 104 mEq/L (98-107); Glucose 120 mg/dL (70-105); Osmolality,Calculated 280 (280-300); Potassium 3.9 mEq/L (3.5-5.1); Sodium 134 mEq/L (136-145); eGFR For African Americans > 60 (> 60); eGFR For Non-African Americans > 60 (> 60)
[2019-11-07] MEDS: *HR* Heparin 5,000 UNIT/ML VIAL SQ SCH ×2 (06:34→18:47)
[2019-11-07] MEDS: D5% in 0.9% NACL 1,000 ML IVC SCH ×3 (10:01→22:30)
[2019-11-07] MEDS: Glycopyrrolate 0.2 MG/ML VIAL IVP PRN (11:56)
[2019-11-08] MEDS: Piperacillin/Tazobactam 3.375 GM in 0.9 % Sodium Chloride Mini Bag 100 ML IVPB SCH ×3 (00:52→17:16)
[2019-11-08] MEDS: Levalbuterol Neb 0.63 MG/3 ML IH SCH ×4 (04:22→22:52)
[2019-11-08] MEDS: *HR* Heparin 5,000 UNIT/ML VIAL SQ SCH ×2 (05:41→17:16)
[2019-11-08] MEDS: Glycopyrrolate 0.2 MG/ML VIAL IVP PRN (05:42)
[2019-11-08] MEDS: Insulin LISPRO 300 UNITS/3 ML VIAL SQ SCH ×3 (09:57→17:16)
[2019-11-09] MEDS: Glycopyrrolate 0.2 MG/ML VIAL IVP PRN (00:33)
[2019-11-09] MEDS: D5% in 0.9% NACL 1,000 ML IVC SCH ×2 (01:00→01:39)
[2019-11-09] MEDS: Piperacillin/Tazobactam 3.375 GM in 0.9 % Sodium Chloride Mini Bag 100 ML IVPB SCH (01:36)
[2019-11-09] MEDS: Insulin LISPRO 300 UNITS/3 ML VIAL SQ SCH ×4 (01:40→17:22)
[2019-11-09] MEDS: Levalbuterol Neb 0.63 MG/3 ML IH SCH ×4 (04:26→22:56)
[2019-11-09] MEDS: *HR* Heparin 5,000 UNIT/ML VIAL SQ SCH ×2 (06:55→17:25)
[2019-11-10] MEDS: Insulin LISPRO 300 UNITS/3 ML VIAL SQ SCH ×5 (00:06→20:41)
[2019-11-10] MEDS: Levalbuterol Neb 0.63 MG/3 ML IH SCH ×4 (04:31→21:29)
[2019-11-10] MEDS: Glycopyrrolate 0.2 MG/ML VIAL IVP PRN (06:46)
[2019-11-10] MEDS: *HR* Heparin 5,000 UNIT/ML VIAL SQ SCH ×2 (06:46→17:14)
[2019-11-10] MEDS ORDERED: Scopolamine Patch 1.5 MG PATCH.TD72 TD SCH (10:00)
[2019-11-11] MEDS: Levalbuterol Neb 0.63 MG/3 ML IH SCH ×4 (04:01→22:04)
[2019-11-11] MEDS: *HR* Heparin 5,000 UNIT/ML VIAL SQ SCH ×2 (05:52→17:42)
[2019-11-11] MEDS: Insulin LISPRO 300 UNITS/3 ML VIAL SQ SCH ×4 (09:41→20:58)
[2019-11-12] MEDS: Levalbuterol Neb 0.63 MG/3 ML IH SCH ×3 (03:50→17:17)
[2019-11-12] MEDS: *HR* Heparin 5,000 UNIT/ML VIAL SQ SCH (05:34)
[2019-11-12] MEDS: Insulin LISPRO 300 UNITS/3 ML VIAL SQ SCH ×2 (08:25→13:03)
[2019-11-12 13:41] VITALS: BP 114/44
== END 2019-11-12 17:33 | disposition hospice, home (50) | DRG 720 ==
LOC: 2ANU → SUATTDRO 11-03 00:42
PROVIDERS: ADMIT Family Medicine; ATTEND Internal Medicine

== ENCOUNTER 2021-04-06 17:21 | Inpatient (IN) ==
[2021-04-06] MEDS ORDERED: Ondansetron 4 MG/2 ML VIAL IVP PRN (19:30)
[2021-04-06] MEDS ORDERED: Acetaminophen 325 MG TABLET PO PRN (19:30)
[2021-04-06] MEDS ORDERED: Naloxone 0.4 MG/ML INJ IVP PRN (19:30)
[2021-04-06] MEDS ORDERED: D5% in Water 1,000 ML IVC PRN (19:33)
[2021-04-06] MEDS ORDERED: Dextrose Gel 15 GM/37.5 ML TUBE PO PRN ×2 (19:33)
[2021-04-06] MEDS ORDERED: *HR* Dextrose 50 % in Water (Vial) 50 ML VIAL IVP PRN (19:33)
[2021-04-06] MEDS ORDERED: Ipratropium/Albuterol Neb 3 ML IH PRN (20:14)
[2021-04-06] MEDS: 0.9 % Sodium Chloride 1,000 ML IVC SCH (21:02)
[2021-04-06] MEDS: Piperacillin/Tazobactam 3.375 GM in 0.9 % Sodium Chloride Mini Bag 100 ML IVPB SCH (21:12)
[2021-04-06] MEDS: Insulin LISPRO 300 UNITS/3 ML VIAL SUBQ SCH (21:23)
[2021-04-07 01:20] LABS: Basophils % 0.4 %; Eosinophils # 0.3 K/mcL (0.0-0.6); Eosinophils % 2.8 %; Hematocrit 37.1 % (37.5-50.1); Hemoglobin 12.1 g/dL (12.9-16.9); Immature Granulocytes % 0.3 % (0-4); Lymphocytes # 2.4 K/mcL (0.6-4.6); Lymphocytes % 23.5 %; Mean Corpuscular HGB Conc 32.6 g/dL (31.6-35.5); Mean Corpuscular Hemoglobin 28.7 pg (28.0-33.3); Mean Corpuscular Volume 88.1 fL (83.0-100.0); Mean Platelet Volume 9.2 fL (9.4-12.4); Monocytes % 9.8 %; Neutrophils # 6.5 K/mcL (1.6-8.9); Platelet Count 255 K/mcL (140-400); Red Blood Count 4.21 M/mcL (4.19-5.50); Red Cell Distribution Width 13.6 % (11.5-14.5); Segmented Neutrophils % 63.2 %; White Blood Count 10.3 K/mcL (4.3-11.1)
[2021-04-07 01:27] LABS: INR 1.5; Prothrombin Time 17.1 Seconds (9.4-12.1)
[2021-04-07 01:43] LABS: Alanine Aminotransferase 32 Units/L (7-52); Albumin 3.2 g/dL (3.5-5.7); Alkaline Phosphatase 75 Units/L (34-104); Aspartate Amino Transferase 27 Units/L (13-39); BUN/Creatinine Ratio 13 (6-26); Bilirubin,Total 0.4 mg/dL (0.3-1.0); Blood Urea Nitrogen 8 mg/dL (6-20); Carbon Dioxide 23 mEq/L (23-29); Chloride 106 mEq/L (98-107); Globulin 3.2 g/dL (2.4-3.5); Glucose 137 mg/dL (70-105); Magnesium 1.6 mg/dL (1.6-2.6); Osmolality,Calculated 278 (280-300); Potassium 3.8 mEq/L (3.5-5.1); Sodium 134 mEq/L (136-145); Total Protein 6.4 g/dL (6.4-8.9); eGFR For African Americans > 60 (> 60); eGFR For Non-African Americans > 60 (> 60)
[2021-04-07] MEDS: *HR* Heparin 5,000 UNIT/ML VIAL SQ SCH ×2 (05:54→16:13)
[2021-04-07] MEDS: Piperacillin/Tazobactam 3.375 GM in 0.9 % Sodium Chloride Mini Bag 100 ML IVPB SCH ×3 (05:56→21:03)
[2021-04-07] MEDS: Insulin LISPRO 300 UNITS/3 ML VIAL SUBQ SCH ×4 (07:50→19:53)
[2021-04-07] MEDS: 0.9 % Sodium Chloride 1,000 ML IVC SCH (07:52)
[2021-04-07] MEDS ORDERED: Chloraseptic Spray 177 ML BOTTLE MM PRN (23:20)
[2021-04-08] MEDS: *HR* Heparin 5,000 UNIT/ML VIAL SQ SCH ×2 (05:33→17:17)
[2021-04-08] MEDS: Piperacillin/Tazobactam 3.375 GM in 0.9 % Sodium Chloride Mini Bag 100 ML IVPB SCH ×2 (05:33→18:57)
[2021-04-08] MEDS ORDERED: Vancomycin 0 MG in 0.9 % Sodium Chloride 250 ML IVPB SCH (09:00)
[2021-04-08] MEDS ORDERED: Vancomycin 1,250 MG/262.5 ML IV.SOLN IVPB SCH (09:00)
[2021-04-08] MEDS: Insulin LISPRO 300 UNITS/3 ML VIAL SUBQ SCH ×4 (09:25→20:51)
[2021-04-08] MEDS ORDERED: *HR* LORazepam 2 MG/ML VIAL IVP PRN (10:36)
[2021-04-08] MEDS: QUEtiapine Fumarate 100 MG TABLET PO SCH ×2 (11:34→17:17)
[2021-04-08 12:02] LABS: Adenovirus Not Detected (Not Detect); Bordetella Pertussis Not Detected (Not Detect); Chlamydophila pneumoniae Not Detected (Not Detect); Coronavirus 229E Not Detected (Not Detect); Coronavirus HKU1 Not Detected (Not Detect); Coronavirus NL63 Not Detected (Not Detect); Coronavirus OC43 Not Detected (Not Detect); Human Metapneumovirus Not Detected (Not Detect); Human Rhinovirus/Enterovirus Not Detected (Not Detect); Influenza A Subtype 2009 H1 Not Detected (Not Detect); Influenza B Not Detected (Not Detect); Mycoplasma pneumoniae Not Detected (Not Detect); Parainfluenza Virus 1 Not Detected (Not Detect); Parainfluenza Virus 2 Not Detected (Not Detect); Parainfluenza Virus 3 Not Detected (Not Detect); Parainfluenza Virus 4 Not Detected (Not Detect); Respiratory Syncytial Virus Not Detected (Not Detect); SARS-CoV-2 Not Detected (Not Detect)
[2021-04-08] MEDS ORDERED: Ondansetron ODT 4 MG TAB.RAPDIS SL ONE (12:42)
[2021-04-08] MEDS ORDERED: MOM Conc 10 ML UD.LIQ PO PRN (13:58)
[2021-04-08] MEDS ORDERED: Mag Hydrox/Al Hydrox/Simeth 30 ML UDC PO PRN (13:58)
[2021-04-08] MEDS ORDERED: dimenhyDRINATE 50 MG TABLET PO PRN (13:58)
[2021-04-08] MEDS ORDERED: Ibuprofen 800 MG TABLET PO PRN (13:58)
[2021-04-08] MEDS ORDERED: Saline Nasal Spray 44 ML BOTTLE NS PRN (13:58)
[2021-04-08] MEDS ORDERED: Benzonatate 100 MG CAPSULE PO PRN (13:58)
[2021-04-08] MEDS ORDERED: Desitin (Zinc Oxide) 56 GM TUBE TP PRN (13:58)
[2021-04-08] MEDS ORDERED: Phenytoin 250 MG, 0.22 MICRON FILTER SET 1 EACH in 0.9 % Sodium Chloride 50 ML IVPB ONE (15:25)
[2021-04-08] MEDS: Gabapentin 300 MG CAPSULE PO SCH ×2 (15:52→20:57)
[2021-04-08] MEDS: Vancomycin 1,250 MG/262.5 ML IV.SOLN IVPB SCH (15:52)
[2021-04-08] MEDS: Phenytoin Oral Susp 100 MG/4 ML UDC PO SCH ×3 (15:58→23:00)
[2021-04-08] MEDS ORDERED: [UNRECOGNIZED DRUG - OTHER] PO SCH (17:00)
[2021-04-08] MEDS ORDERED: FIBER PO SCH (17:00)
[2021-04-08] MEDS ORDERED: NUT TX GLUC INTOL LF SOY PO SCH (17:00)
[2021-04-08] MEDS: Ondansetron ODT 4 MG TAB.RAPDIS SL SCH (17:04)
[2021-04-08] MEDS: Budesonide/Formoterol 80/4.5 1 PUFF INH IH SCH (20:03)
[2021-04-09] MEDS: Ondansetron ODT 4 MG TAB.RAPDIS SL SCH ×5 (01:29→20:23)
[2021-04-09] MEDS: Vancomycin 1,250 MG/262.5 ML IV.SOLN IVPB SCH (01:46)
[2021-04-09] MEDS: *HR* Heparin 5,000 UNIT/ML VIAL SQ SCH ×2 (05:18→18:00)
[2021-04-09 07:00] LABS: Basophils % 0.3 %; Eosinophils # 0.4 K/mcL (0.0-0.6); Eosinophils % 3.7 %; Hematocrit 41.6 % (37.5-50.1); Hemoglobin 13.6 g/dL (12.9-16.9); Immature Granulocytes % 0.5 % (0-4); Lymphocytes % 20.2 %; Mean Corpuscular HGB Conc 32.7 g/dL (31.6-35.5); Mean Corpuscular Hemoglobin 28.8 pg (28.0-33.3); Mean Corpuscular Volume 87.9 fL (83.0-100.0); Mean Platelet Volume 8.5 fL (9.4-12.4); Monocytes % 10.1 %; Neutrophils # 6.5 K/mcL (1.6-8.9); Platelet Count 333 K/mcL (140-400); Red Blood Count 4.73 M/mcL (4.19-5.50); Red Cell Distribution Width 13.8 % (11.5-14.5); Segmented Neutrophils % 65.2 %
[2021-04-09 07:18] LABS: BUN/Creatinine Ratio 18 (6-26); Blood Urea Nitrogen 9 mg/dL (6-20); Calcium 8.7 mg/dL (8.6-10.3); Carbon Dioxide 25 mEq/L (23-29); Chloride 105 mEq/L (98-107); Glucose 153 mg/dL (70-105); Osmolality,Calculated 284 (280-300); Potassium 3.6 mEq/L (3.5-5.1); Sodium 136 mEq/L (136-145); eGFR For African Americans > 60 (> 60); eGFR For Non-African Americans > 60 (> 60)
[2021-04-09] MEDS: Budesonide/Formoterol 80/4.5 1 PUFF INH IH SCH ×2 (07:31→19:53)
[2021-04-09] MEDS ORDERED: DHA PO SCH (09:00)
[2021-04-09] MEDS ORDERED: FISH OIL PO SCH (09:00)
[2021-04-09] MEDS ORDERED: OMEGA PO SCH (09:00)
[2021-04-09] MEDS ORDERED: EPA PO SCH (09:00)
[2021-04-09] MEDS ORDERED: [UNRECOGNIZED DRUG - OTHER] PO SCH (09:00)
[2021-04-09] MEDS: QUEtiapine Fumarate 100 MG TABLET PO SCH ×2 (09:07→18:00)
[2021-04-09] MEDS: Multivit/Ca/Min/Fe/FA 1 TAB TABLET PO SCH (09:07)
[2021-04-09] MEDS: Gabapentin 300 MG CAPSULE PO SCH ×3 (09:07→20:23)
[2021-04-09] MEDS: Cholecalciferol (D-3) 1,000 UNIT (25MCG) TABLET PO SCH (09:07)
[2021-04-09] MEDS: polyethylene glycoL 3350 17 GM POWD.PACK PO SCH (09:08)
[2021-04-09] MEDS: Phenytoin Oral Susp 100 MG/4 ML UDC PO SCH (09:14)
[2021-04-09] MEDS: Insulin LISPRO 300 UNITS/3 ML VIAL SUBQ SCH ×4 (09:14→20:27)
[2021-04-09] MEDS ORDERED: levETIRAcetam 1,000 MG in 0.9 % Sodium Chloride 100 ML IVPB ONE (10:28)
[2021-04-09] MEDS: levETIRAcetam 250 MG TABLET PO SCH (20:23)
[2021-04-10] MEDS: *HR* Heparin 5,000 UNIT/ML VIAL SQ SCH (05:19)
[2021-04-10] MEDS: Ondansetron ODT 4 MG TAB.RAPDIS SL SCH ×2 (05:19→11:26)
[2021-04-10] MEDS ORDERED: Doxycycline 100 MG CAPSULE PO SCH (09:00)
[2021-04-10] MEDS: Multivit/Ca/Min/Fe/FA 1 TAB TABLET PO SCH (09:04)
[2021-04-10] MEDS: Gabapentin 300 MG CAPSULE PO SCH (09:04)
[2021-04-10] MEDS: Cholecalciferol (D-3) 1,000 UNIT (25MCG) TABLET PO SCH (09:04)
[2021-04-10] MEDS: levETIRAcetam 250 MG TABLET PO SCH (09:04)
[2021-04-10] MEDS: QUEtiapine Fumarate 100 MG TABLET PO SCH (09:05)
[2021-04-10] MEDS: Insulin LISPRO 300 UNITS/3 ML VIAL SUBQ SCH ×2 (09:05→11:26)
[2021-04-10] MEDS: polyethylene glycoL 3350 17 GM POWD.PACK PO SCH (09:05)
[2021-04-10] MEDS: Budesonide/Formoterol 80/4.5 1 PUFF INH IH SCH (10:36)
[2021-04-10 10:56] VITALS: BP 123/74
== END 2021-04-10 15:02 | disposition home or self-care (01) | DRG 720 ==
LOC: SUATTDRO 19:02 → 2NNU 19:02 → 3ANU 04-08 18:36
PROVIDERS: ADMIT Internal Medicine; ATTEND Internal Medicine

== ENCOUNTER 2021-04-12 16:24 | Inpatient (IN) ==
[2021-04-12] MEDS ORDERED: Ondansetron 4 MG/2 ML VIAL IVP PRN (20:33)
[2021-04-12] MEDS ORDERED: Melatonin 3 MG TABLET PO PRN (20:33)
[2021-04-12] MEDS ORDERED: Naloxone 0.4 MG/ML INJ IVP PRN (20:33)
[2021-04-13] MEDS ORDERED: Dextrose Gel 15 GM/37.5 ML TUBE PO PRN ×2 (06:22)
[2021-04-13] MEDS ORDERED: *HR* Dextrose 50 % in Water (Vial) 50 ML VIAL IVP PRN (06:22)
[2021-04-13] MEDS ORDERED: D5% in Water 1,000 ML IVC PRN (06:22)
[2021-04-13] MEDS: Ampicillin/Sulbactam 3,000 MG in 0.9 % Sodium Chloride Mini Bag 100 ML IVPB SCH ×3 (06:34→18:26)
[2021-04-13] MEDS ORDERED: Benzonatate 100 MG CAPSULE PO PRN (08:11)
[2021-04-13] MEDS ORDERED: Acetaminophen 325 MG TABLET PO PRN (08:11)
[2021-04-13] MEDS ORDERED: Albuterol 2.5 MG/3 ML NEBULIZER IH PRN (08:11)
[2021-04-13] MEDS: Ferrous Sulfate Oral Soln 300 MG/5 ML UDC PO SCH (10:22)
[2021-04-13] MEDS: QUEtiapine Fumarate 100 MG TABLET PO SCH ×2 (10:22→17:04)
[2021-04-13] MEDS: polyethylene glycoL 3350 17 GM POWD.PACK PO SCH (10:22)
[2021-04-13] MEDS: Gabapentin 300 MG CAPSULE PO SCH ×3 (10:22→19:45)
[2021-04-13] MEDS: levETIRAcetam 250 MG TABLET PO SCH ×2 (10:43→19:46)
[2021-04-13] MEDS: Budesonide/Formoterol 80/4.5 1 PUFF INH IH SCH ×2 (10:48→20:12)
[2021-04-13] MEDS: Insulin LISPRO 300 UNITS/3 ML VIAL SUBQ SCH ×3 (13:02→23:39)
[2021-04-13 13:43] LABS: Basophils % 0.2 %; Eosinophils # 0.2 K/mcL (0.0-0.6); Eosinophils % 1.8 %; Hematocrit 40.7 % (37.5-50.1); Hemoglobin 13.3 g/dL (12.9-16.9); Immature Granulocytes % 0.2 % (0-4); Lymphocytes # 2.2 K/mcL (0.6-4.6); Lymphocytes % 23.9 %; Mean Corpuscular HGB Conc 32.7 g/dL (31.6-35.5); Mean Corpuscular Hemoglobin 28.8 pg (28.0-33.3); Mean Corpuscular Volume 88.1 fL (83.0-100.0); Mean Platelet Volume 8.8 fL (9.4-12.4); Monocytes # 0.7 K/mcL (0.0-1.3); Monocytes % 7.3 %; Platelet Count 308 K/mcL (140-400); Red Blood Count 4.62 M/mcL (4.19-5.50); Red Cell Distribution Width 13.9 % (11.5-14.5); Segmented Neutrophils % 66.6 %
[2021-04-13 14:28] LABS: Alanine Aminotransferase 37 Units/L (7-52); Albumin 3.5 g/dL (3.5-5.7); Albumin/Globulin Ratio 0.9 (1.1-2.2); Alkaline Phosphatase 82 Units/L (34-104); Aspartate Amino Transferase 29 Units/L (13-39); BUN/Creatinine Ratio 11 (6-26); Bilirubin,Total 0.4 mg/dL (0.3-1.0); Blood Urea Nitrogen 7 mg/dL (6-20); Calcium 9.2 mg/dL (8.6-10.3); Carbon Dioxide 27 mEq/L (23-29); Chloride 102 mEq/L (98-107); Globulin 4.1 g/dL (2.4-3.5); Glucose 218 mg/dL (70-105); Magnesium 1.8 mg/dL (1.6-2.6); Osmolality,Calculated 291 (280-300); Phosphorous 3.4 mg/dL (2.7-4.5); Potassium 4.1 mEq/L (3.5-5.1); Sodium 138 mEq/L (136-145); Total Protein 7.6 g/dL (6.4-8.9); eGFR For African Americans > 60 (> 60); eGFR For Non-African Americans > 60 (> 60)
[2021-04-13] MEDS: *HR* Heparin 5,000 UNIT/ML VIAL SQ SCH (17:05)
[2021-04-14] MEDS: Ampicillin/Sulbactam 3,000 MG in 0.9 % Sodium Chloride Mini Bag 100 ML IVPB SCH ×4 (00:04→18:03)
[2021-04-14 00:29] LABS: Hematocrit 40.2 % (37.5-50.1); Hemoglobin 13.7 g/dL (12.9-16.9); Mean Corpuscular HGB Conc 34.1 g/dL (31.6-35.5); Mean Corpuscular Hemoglobin 29.8 pg (28.0-33.3); Mean Corpuscular Volume 87.6 fL (83.0-100.0); Mean Platelet Volume 8.7 fL (9.4-12.4); Platelet Count 318 K/mcL (140-400); Red Blood Count 4.59 M/mcL (4.19-5.50); White Blood Count 9.1 K/mcL (4.3-11.1)
[2021-04-14 00:41] LABS: BUN/Creatinine Ratio 13 (6-26); Blood Urea Nitrogen 8 mg/dL (6-20); Calcium 9.1 mg/dL (8.6-10.3); Carbon Dioxide 26 mEq/L (23-29); Chloride 106 mEq/L (98-107); Glucose 147 mg/dL (70-105); Osmolality,Calculated 293 (280-300); Potassium 3.8 mEq/L (3.5-5.1); Sodium 141 mEq/L (136-145); eGFR For African Americans > 60 (> 60); eGFR For Non-African Americans > 60 (> 60)
[2021-04-14] MEDS: *HR* Heparin 5,000 UNIT/ML VIAL SQ SCH ×2 (05:47→16:55)
[2021-04-14] MEDS: Insulin LISPRO 300 UNITS/3 ML VIAL SUBQ SCH ×3 (06:44→18:18)
[2021-04-14] MEDS: Budesonide/Formoterol 80/4.5 1 PUFF INH IH SCH ×2 (07:25→19:46)
[2021-04-14] MEDS: levETIRAcetam 250 MG TABLET PO SCH ×2 (07:31→22:26)
[2021-04-14] MEDS: Gabapentin 300 MG CAPSULE PO SCH ×3 (07:32→22:27)
[2021-04-14] MEDS: QUEtiapine Fumarate 100 MG TABLET PO SCH ×2 (07:32→17:04)
[2021-04-14] MEDS: Ferrous Sulfate Oral Soln 300 MG/5 ML UDC PO SCH (07:32)
[2021-04-14] MEDS: polyethylene glycoL 3350 17 GM POWD.PACK PO SCH (08:12)
[2021-04-15] MEDS: Insulin LISPRO 300 UNITS/3 ML VIAL SUBQ SCH ×2 (00:19→05:37)
[2021-04-15] MEDS: Ampicillin/Sulbactam 3,000 MG in 0.9 % Sodium Chloride Mini Bag 100 ML IVPB SCH ×2 (00:25→05:34)
[2021-04-15] MEDS: *HR* Heparin 5,000 UNIT/ML VIAL SQ SCH (05:33)
[2021-04-15] MEDS: Budesonide/Formoterol 80/4.5 1 PUFF INH IH SCH (09:55)
[2021-04-15] MEDS: Gabapentin 300 MG CAPSULE PO SCH (10:01)
[2021-04-15] MEDS: QUEtiapine Fumarate 100 MG TABLET PO SCH (10:01)
[2021-04-15] MEDS: Ferrous Sulfate Oral Soln 300 MG/5 ML UDC PO SCH (10:02)
[2021-04-15] MEDS: levETIRAcetam 250 MG TABLET PO SCH (10:02)
[2021-04-15] MEDS: polyethylene glycoL 3350 17 GM POWD.PACK PO SCH (10:03)
[2021-04-15 11:29] VITALS: BP 109/72
== END 2021-04-15 15:18 | disposition home or self-care (01) | DRG 137 ==
LOC: 2NENU → SUATTDRO 04-13 15:46 → 3BNU 04-15 01:33
PROVIDERS: ADMIT Internal Medicine; ATTEND Family Medicine

== ENCOUNTER 2022-02-23 21:46 | Observation (INO) ==
[2022-02-24] MEDS ORDERED: Naloxone 0.4 MG/ML INJ IVP PRN (00:24)
[2022-02-24] MEDS ORDERED: Melatonin 3 MG TABLET PO PRN (00:24)
[2022-02-24] MEDS ORDERED: *HR* Heparin 5,000 UNIT/ML VIAL IVP PRN ×2 (00:30)
[2022-02-24] MEDS ORDERED: Dextrose 4 GM Chewable Tablets PO PRN ×2 (00:30)
[2022-02-24] MEDS ORDERED: Heparin 25,000UNIT/250ML 1/2NS 25,000 UNIT/250 ML IV.SOLN IVC SCH (00:30)
[2022-02-24] MEDS ORDERED: *HR* Dextrose 50 % in Water (Syg) 50 ML SYRINGE IVP PRN (00:30)
[2022-02-24] MEDS ORDERED: D5% in Water 1,000 ML IVC PRN (00:30)
[2022-02-24] MEDS ORDERED: levETIRAcetam 250 MG TABLET PO SCH (00:37)
[2022-02-24] MEDS ORDERED: *HR* LORazepam 0.5 MG TABLET PO PRN (00:55)
[2022-02-24] MEDS: QUEtiapine Fumarate 100 MG TABLET PO SCH ×3 (01:01→20:23)
[2022-02-24 02:23] LABS: Hematocrit 39.4 % (37.5-50.1); Hemoglobin 13.1 g/dL (12.9-16.9); Mean Corpuscular HGB Conc 33.2 g/dL (31.6-35.5); Mean Corpuscular Hemoglobin 28.9 pg (28.0-33.3); Mean Platelet Volume 9.5 fL (9.4-12.4); Platelet Count 308 K/mcL (140-400); Red Blood Count 4.53 M/mcL (4.19-5.50); Red Cell Distribution Width 14.3 % (11.5-14.5); Segmented Neutrophils % 60.1 %; White Blood Count 12.7 K/mcL (4.3-11.1)
[2022-02-24 02:24] LABS: Basophils # 0.1 K/mcL (0.0-0.2); Basophils % 0.5 %; Eosinophils # 0.8 K/mcL (0.0-0.6); Eosinophils % 6.1 %; Immature Granulocytes % 0.2 % (0-4); Lymphocytes # 3.1 K/mcL (0.6-4.6); Lymphocytes % 24.2 %; Monocytes # 1.1 K/mcL (0.0-1.3); Monocytes % 8.9 %; Neutrophils # 7.6 K/mcL (1.6-8.9)
[2022-02-24 02:38] LABS: Heparin anti-factor XA UFH 0.38 IU/mL (0.30-0.70)
[2022-02-24 02:39] LABS: INR 1.3; Prothrombin Time 14.5 Seconds (9.4-12.1)
[2022-02-24 02:43] LABS: Alanine Aminotransferase 41 Units/L (7-52); Albumin 3.4 g/dL (3.5-5.7); Albumin/Globulin Ratio 1.1 (1.1-2.2); Alkaline Phosphatase 71 Units/L (34-104); Aspartate Amino Transferase 40 Units/L (13-39); Bilirubin,Total 0.4 mg/dL (0.3-1.0); Blood Urea Nitrogen 15 mg/dL (6-20); Carbon Dioxide 24 mEq/L (23-29); Chloride 101 mEq/L (98-107); Globulin 3.2 g/dL (2.4-3.5); Glucose 131 mg/dL (70-105); Magnesium 1.6 mg/dL (1.6-2.6); Osmolality,Calculated 283 (280-300); Potassium 4.1 mEq/L (3.5-5.1); Sodium 135 mEq/L (136-145); Total Protein 6.6 g/dL (6.4-8.9)
[2022-02-24 03:31] LABS: BUN/Creatinine Ratio 24 (6-26); eGFR For African Americans > 60 (> 60); eGFR For Non-African Americans > 60 (> 60)
[2022-02-24] MEDS: Insulin LISPRO 300 UNITS/3 ML VIAL SUBQ SCH ×3 (07:37→16:57)
[2022-02-24] MEDS: Gabapentin 300 MG CAPSULE PO SCH ×3 (07:52→20:22)
[2022-02-24 11:40] VITALS: O2SAT 95
[2022-02-24] MEDS: levETIRAcetam 250 MG TABLET PO SCH (13:11)
[2022-02-24] MEDS ORDERED: Insulin LISPRO 300 UNITS/3 ML VIAL SUBQ SCH (21:00)
[2022-02-25] MEDS: levETIRAcetam 250 MG TABLET PO SCH (00:02)
[2022-02-25 04:19] VITALS: BP 116/78; PULSE 90; TEMP 98
[2022-02-25] MEDS: Insulin LISPRO 300 UNITS/3 ML VIAL SUBQ SCH (09:21)
[2022-02-25] MEDS: QUEtiapine Fumarate 100 MG TABLET PO SCH (09:22)
[2022-02-25] MEDS: Gabapentin 300 MG CAPSULE PO SCH (09:22)
[2022-02-25] MEDS ORDERED: levETIRAcetam 250 MG TABLET PO SCH (10:00)
[2022-02-25] MEDS ORDERED: QUEtiapine Fumarate 100 MG TABLET PO SCH ×2 (10:15→20:00)
== END 2022-02-25 13:17 | disposition home or self-care (01) ==
LOC: 3NENU → SUATTDRO 22:52
PROVIDERS: ADMIT Internal Medicine; ATTEND Internal Medicine